=== PATIENT | male | born 1980 | race Caucasian/White ===

== ENCOUNTER 2022-11-08 09:59 | Outpatient (REF) | payer MEDICARE, MEDICAID, SELFPAY ==
--- NOTE | 2022-11-08 10:57 | MHC.AU.HA1 ---
Hearing Aid Evaluation Date of Visit: 11/08/22 Historical Information: Description of Hearing: Right: Normal from 250-2000 Hz, sloping to moderate mixed hearing loss, Left: Overall mild/borderline mixed hearing loss Summary: Patient reports he wore BTE hearing aids up until he was a teenager. He has had surgeries on both ears. He is followed by Dr. eHnderson. He is interested in using hearing aids again, as he has been noticing increased hearing difficulties at work and home. Options were discussed. Molds are highly recommended due to shape/size of canals from the surgeries. Impressions were taken bilaterally without incident. Hearing Aid Prescription: Based on the individual?s shared listening needs, communication environments, dexterity, desire for connectivity, and personal preferences, the following prescription for amplification has been made: Right ear: Make, Model, Color: Oticon Real 2 miniRITE R, [place] Battery Size: Rechargeable Sanding Machine Tender Automatic/Slim Tube: 2- 85 gain Type of Earmold/Dome/CShell/SlimTip: Microsonic M2000 Clear Skeleton Left ear: Make, Model, Color: Oticon Real 2 miniRITE R, [place] Green Battery Size: Rechargeable Sanding Machine Tender Automatic/Slim Tube: 2- 85 gain Type of Earmold/Dome/CShell/SlimTip: Microsonic M2000 Clear Skeleton Action Taken/Action Needed: Hearing Instrument Fitting to be scheduled when materials arrive Primary Diagnosis: H90.6 Mixed Hearing Loss, Bilateral Signature: Provider: Elpidio Heredia, [facility]
== END 2022-11-08 10:00 | disposition home or self-care (01) ==
LOC: HO.HAP 09:59
PROVIDERS: PCP Internal Medicine; Visit Provider Otolaryngology
DX: Z46.1 Encounter for fitting and adjustment of hearing aid (principal); H90.6 Mixed conductive and sensorineural hearing loss, bilateral
CPT/HCPCS: 92591; V5275

== ENCOUNTER 2022-12-21 14:49 | Outpatient (REF) | payer MEDICARE, MEDICAID, SELFPAY ==
--- NOTE | 2022-12-17 09:04 | MHC.AU.NMH ---
Hearing Aid Delivery Receipt: Third Constitution Party Payor [facility] type [facility] Other: Date of Fitting: End of Adjustment Period: 30 days from date of fitting Hazardous Materials Driver: Right Ear: Left Ear: Make, Model, Serial Number and Color: Pablito stoneRIUrsula LÓPEZ [id number] Make, Model, Serial Number and Color: Pablito stoneRIUrsula LÓPEZ [id number] Baked Goods Stock Clerk/Slim Tube: 2- 85 gain Baked Goods Stock Clerk/Slim Tube: 2- 85 gain Earmold/Dome/CShell/SlimTip: Microsonic M2000 Clear Skeleton Earmold/Dome/CShell/SlimTip: Microsonic M2000 Clear Skeleton Type of Wax Guard: Mini Fit Pro Wax Type of Wax Guard: Mini Fit Pro Wax Battery Size: Rechargeable Battery Size: Rechargeable Prescription Clerk Lenses Repair Warranty: 12/09/2025 Prescription Clerk Lenses Repair Warranty: 12/09/2025 Prescription Clerk Lenses Loss and Damage Warranty: 12/09/2025 Prescription Clerk Lenses Loss and Damage Warranty: 12/09/2025 [facility] Service Agreement ends one year from date of fitting on? [facility] Service Agreement ends one year from date of fitting on Accessories/Assistive Technology: Following the expiration of [facility]s service agreement, charges for items and services listed above are billed at the usual and customary rate. *If coverage by third alliance party payor exists, medically necessary modifications, repairs, etc. will be billed to said third alliance party payor. If there is no third alliance party payor eligibility beyond the service agreement or mail distribution scheme examiner warranty periods, items will be billed per usual and customary rates and payment is expected at the time of service. Hearing aids that are lost or damaged beyond repair cannot be returned for credit, and the belt and link shop supervisor is liable for the full purchase kurtz. My signature below acknowledges that I have read and understand this hearing aid contract and have received the goods and services out lined above. ?Date? Home Address: ? PATIENT STICKER ? This hearing aid will not restore normal hearing nor will it prevent further hearing loss. The sale of a hearing aid is restricted to those individuals who have obtained a medical evaluation from a licensed physician or patch worker. A fully informed adult whose temple or personal beliefs preclude consultation with a physician may waive the requirement of a medical evaluation. The exercise of such a waiver is not in your best health interest and its use is strongly discouraged. It is also required that a person under the age of eighteen years obtain an evaluation by an dealer card room in addition to the medical evaluation before a hearing aid can be sold to such person. Dhaval Akers,Title XV,Chapter 93:74
== END 2022-12-21 14:50 | disposition home or self-care (01) ==
LOC: HO.HAP 14:49
PROVIDERS: Visit Provider Internal Medicine
DX: Z46.1 Encounter for fitting and adjustment of hearing aid (principal); H90.3 Sensorineural hearing loss, bilateral
CPT/HCPCS: V5011; V5020; V5160; V5261; V5264

== ENCOUNTER 2024-05-28 13:52 | Outpatient (REF) | payer MEDICARE, MEDICAID, SELFPAY | END 2024-05-28 13:53 | disposition home or self-care (01) | LOC: HO.HAP 13:52 | PROVIDERS: Visit Provider Internal Medicine | DX: Z13.89 Encounter for screening for other disorder (principal) ==

== ENCOUNTER 2024-06-03 12:50 | Outpatient (REF) | payer MEDICARE, MEDICAID, SELFPAY | END 2024-06-03 12:51 | disposition home or self-care (01) | LOC: HO.HAP 12:50 | PROVIDERS: Visit Provider Internal Medicine | DX: Z46.1 Encounter for fitting and adjustment of hearing aid (principal); H90.6 Mixed conductive and sensorineural hearing loss, bilateral | CPT/HCPCS: 92593 ==